=== PATIENT | female | born 1990 | race Caucasian/White ===

== ENCOUNTER 2023-04-08 06:51 | Day surgery (SDC) | payer MEDICAID ==
[~2023-04-08] VITALS: Ht 172.7 cm; Wt 121.6 kg
[2023-04-08 07:34] LABS: HCG,QUAL RESULT NEGATIVE (NEGATIVE)
[2023-04-08] MEDS ORDERED: MIDAZOLAM HCL 5 MG/5 ML VIAL ONE (07:52)
[2023-04-08] MEDS ORDERED: MEPERIDINE 100 MG INJ. 100 MG/ML VIAL ONE (07:53)
[2023-04-08] MEDS ORDERED: BENZOCAINE 20% 0.5mL UD SPRAY MM ONE (07:53)
[2023-04-08] MEDS ORDERED: ONDANSETRON HCL 4 MG/2 ML VIAL ONE (09:30)
[2023-04-08 14:21] VITALS: BP_SYST 180
== END 2023-04-08 11:15 | disposition home or self-care (01) ==
LOC: SDS 06:51 → SMU 06:52 → SDS 11:15
PROVIDERS: ATTEND Internal Medicine
DX: E66.01 Morbid (severe) obesity due to excess calories (principal); K21.9 Gastro-esophageal reflux disease without esophagitis; K29.50 Unspecified chronic gastritis without bleeding; I10 Essential (primary) hypertension; E78.5 Hyperlipidemia, unspecified; K58.9 Irritable bowel syndrome, unspecified; Z87.891 Personal history of nicotine dependence; Z79.899 Other long term (current) drug therapy; Z68.41 Body mass index [BMI] 40.0-44.9, adult
CPT/HCPCS: 43239; 87081; 84703; 36415; 88305; 88312; 88313; 99152; G0378; J2250; J2405; J2175